=== PATIENT | male | born 1990 | race Caucasian/White ===

== ENCOUNTER 2021-01-04 13:37 | Emergency (ER) | payer SELFPAY ==
[~2021-01-04] VITALS: Ht 172.7 cm; Wt 91.0 kg
[2021-01-04] MEDS ORDERED: [UNRECOGNIZED DRUG - REMARK] (13:43)
[2021-01-04 14:00] VITALS: BP 166/120
[2021-01-04] MEDS ORDERED: LORAZEPAM 1MG TABLET PO ONE (14:00)
[2021-01-04] MEDS ORDERED: CLONIDINE 0.2MG TABLET PO ONE (14:00)
== END 2021-01-04 14:33 | disposition left against medical advice (07) ==
LOC: ER 13:37
DX: T40.411A Poisoning by fentanyl or fentanyl analogs, accidental (unintentional), initial encounter (principal); F11.10 Opioid abuse, uncomplicated; Y92.018 Other place in single-family (private) house as the place of occurrence of the external cause
CPT/HCPCS: 93005; 99283